=== PATIENT | female | born 2000 | race Caucasian/White ===

== ENCOUNTER 2025-02-24 05:59 | Emergency (ER) | payer SELFPAY ==
[~2025-02-24] VITALS: Ht 162.6 cm; Wt 99.0 kg
[2025-02-24 06:02] VITALS: TEMP 36.8; O2SAT 98
[2025-02-24 09:25] LABS: BASOPHILS % 0.5 % (0.0-2.0); EOSINOPHILS % 0.2 % (0.0-5.0); HEMATOCRIT. 40.3 % (36.0-48.0); HEMOGLOBIN. 13.8 g/dL (12.0-16.0); LYMPHOCYTES % 26.8 % (20.0-50.0); MEAN PLATELET VOLUME 6.5 fl (7.4-10.4); MONOCYTES % 6.1 % (2.0-8.0); NEUTROPHILS % 66.4 % (40.0-76.0); PLATELET 324 x1000/uL (130-400); RED BLOOD CELL COUNT 4.29 mill/uL (4.2-5.4); RED CELL DISTRIBUTION WIDTH 13.7 % (11.6-14.6)
[2025-02-24 09:40] LABS: CREATININE 0.7 mg/dL (0.6-1.0); UREA NITROGEN BLOOD 6 mg/dL (9-23)
[2025-02-24 09:41] LABS: ETHANOL BLOOD 162 mg/dL (<10)
[2025-02-24 09:49] LABS: HCG SCREEN NEGATIVE
[2025-02-24 09:55] VITALS: TEMP 98.4
[2025-02-24] MEDS: ACETAMINOPHEN 325MG TABLET PO ONE (09:55)
[2025-02-24] MEDS ORDERED: IBUP-2028 MT (10:27)
[2025-02-24] MEDS ORDERED: TOPUD PO (10:27)
[2025-02-24 11:50] VITALS: BP 85/46; PULSE 86; RESP 14; O2SAT 97
== END 2025-02-24 11:57 | disposition home or self-care (01) ==
LOC: ER 05:59
DX: S00.81XA Abrasion of other part of head, initial encounter (principal); S00.83XA Contusion of other part of head, initial encounter; F10.129 Alcohol abuse with intoxication, unspecified; Z79.899 Other long term (current) drug therapy; Y04.0XXA Assault by unarmed brawl or fight, initial encounter; Y93.89 Activity, other specified; Y92.89 Other specified places as the place of occurrence of the external cause; Y99.8 Other external cause status; Y90.6 Blood alcohol level of 120-199 mg/100 ml
CPT/HCPCS: 80048; 80320; 84703; 85025; 36415; 70450; 70486; 99284; Z7610; A4606; G0480